=== PATIENT | male | born 1970 | race Caucasian/White ===

== ENCOUNTER 2020-03-03 16:02 | Emergency (ER) | payer BC ==
--- NOTE | 2020-03-03 16:56 | RAD ---
RIGHT KNEE FOUR VIEWS: 03/03/20 HISTORY: Fall, right knee pain. FINDINGS/IMPRESSION: No acute fracture or dislocation is identified. POS: OFF
== END 2020-03-03 17:11 | disposition home or self-care (01) ==
LOC: BURERS 16:02
DX: M25.561 Pain in right knee (principal); I10 Essential (primary) hypertension; Z79.899 Other long term (current) drug therapy; W01.0XXA Fall on same level from slipping, tripping and stumbling without subsequent striking against object, initial encounter

== ENCOUNTER 2021-09-19 21:55 | Emergency (ER) | payer BC ==
[2021-09-19] MEDS ORDERED: Lidocaine 1% PF 5 ML VIAL ONE (22:07)
[2021-09-19] MEDS ORDERED: Bacitracin 1 PK ONE (22:35)
== END 2021-09-19 22:43 | disposition home or self-care (01) ==
LOC: BURERS 21:55
DX: S61.210A Laceration without foreign body of right index finger without damage to nail, initial encounter (principal); S61.212A Laceration without foreign body of right middle finger without damage to nail, initial encounter; I10 Essential (primary) hypertension; Z79.899 Other long term (current) drug therapy; K21.9 Gastro-esophageal reflux disease without esophagitis; W26.0XXA Contact with knife, initial encounter
CPT/HCPCS: 12001